=== PATIENT | female | born 1980 | race Caucasian/White ===

== ENCOUNTER 2018-02-14 17:21 | Inpatient (IN) | payer OTHER ==
[~2018-02-14] VITALS: Ht 157.5 cm; Wt 72.1 kg
[2018-02-14] MEDS ORDERED: LR 500 ML IV ONE (17:45)
[2018-02-14] MEDS ORDERED: LR 1,000 ML IV ONE (17:45)
[2018-02-14] MEDS ORDERED: OXYTOCIN/0.9 % SODIUM CHLORIDE 1,000 ML IV SCH (17:45)
[2018-02-14] MEDS ORDERED: LR 1,000 ML IV SCH (17:45)
[2018-02-14] MEDS ORDERED: TERBUTALINE SULFATE 1 MG/ML VIAL SUBCUT ONE (17:45)
[2018-02-14 19:11] LABS: BASOPHILS % (AUTO) 0.1 % (0.0-2.0); EOSINOPHILS % (AUTO) 0.3 % (0.0-4.0); HEMATOCRIT 39.3 % (36-48); HEMOGLOBIN 13.3 g/dL (12.0-16.0); LYMPHOCYTES # (AUTO) 2.4 K/uL (1.0-5.5); LYMPHOCYTES % (AUTO) 22.5 % (20.5-51.5); MEAN CORPUSCULAR HEMOGLOBIN 30 pg (27-31); MEAN CORPUSCULAR HGB CONC 34 % (32-36); MEAN CORPUSCULAR VOLUME 90 fL (79.0-98.0); MONOCYTES # (AUTO) 0.6 K/uL (0.0-1.0); MONOCYTES % (AUTO) 5.9 % (1.7-9.3); NEUTROPHILS # (AUTO) 7.7 K/uL (1.8-7.7); NEUTROPHILS % (AUTO) 71.2 % (40.0-70.0); PLATELET COUNT (AUTO) 239 K/uL (130-430); RED BLOOD CELL COUNT(AUTO) 4.39 MIL/uL (4.2-6.2); RED CELL DISTRIBUTION WIDTH 12.4 % (9.0-15.0); WHITE BLOOD COUNT (AUTO) 10.7 K/uL (4.8-10.8)
[2018-02-14 19:40] VITALS: BP_SYST 126
[2018-02-14] MEDS: NALBUPHINE HCL 10 MG/ML AMP IVP PRN ×2 (20:22→22:24)
[2018-02-14] MEDS ORDERED: OXYTOCIN 10 UNIT/ML VIAL IM ONE (21:45)
[2018-02-15] MEDS: NALBUPHINE HCL 10 MG/ML AMP IVP PRN (00:36)
[2018-02-15] MEDS ORDERED: RHO(D) IMMUNE GLOBULIN/MALTOSE 1500 UNITS/1.3 ML (WINHRO) IM PRN (05:30)
[2018-02-15] MEDS ORDERED: DERMOPLAST SPRAY TP PRN (05:30)
[2018-02-15] MEDS ORDERED: LANOLIN 7 GM OINT. TP PRN (05:30)
[2018-02-15] MEDS ORDERED: METHYLERGONOVINE MALEATE 0.2 MG TABLET PO PRN (05:30)
[2018-02-15] MEDS ORDERED: OXYTOCIN/0.9 % SODIUM CHLORIDE 1,000 ML IV ONE (05:30)
[2018-02-15] MEDS ORDERED: HYDROcodone/ACETAMIN 5-325 MG TAB (NORCO/ VICODIN) PO PRN (05:30)
[2018-02-15] MEDS ORDERED: MEASLES,MUMPS&RUBELLA VACC/PF 12500 UNIT/0.5 ML VIAL SUBQ PRN (05:30)
[2018-02-15] MEDS ORDERED: WITCH HAZEL LEAF 1 MED.PAD MED.PAD TP PRN (05:30)
[2018-02-15] MEDS ORDERED: OXYCODONE/ACETAMINOPHEN 5-325 TABLET PO PRN ×2 (05:30→05:45)
[2018-02-15] MEDS: IBUPROFEN 600 MG TABLET PO SCH ×4 (05:42→23:51)
[2018-02-15] MEDS ORDERED: LIDOCAINE PF 1% 30ML(POUR BTL) INJ ONE (12:06)
[2018-02-15] MEDS: DOCUSATE SODIUM 100 MG CAPSULE PO PRN (12:13)
[2018-02-15] MEDS ORDERED: TEMAZEPAM 15 MG CAPSULE PO PRN (21:00)
[2018-02-16] MEDS: IBUPROFEN 600 MG TABLET PO SCH ×2 (06:01→12:06)
[2018-02-16] MEDS: DOCUSATE SODIUM 100 MG CAPSULE PO PRN ×2 (06:02→12:06)
[2018-02-16 07:02] LABS: HEMATOCRIT 27.4 % (36-48); HEMOGLOBIN 9.4 g/dL (12.0-16.0)
== END 2018-02-16 13:44 | disposition home or self-care (01) | DRG 807 ==
LOC: SPU 17:21 → UNDOADMIN 17:21 → SPU 17:30
PROVIDERS: ADMIT Obstetrics & Gynecology; ATTEND Obstetrics & Gynecology
PROC: 10D07Z6 Extraction of Products of Conception, Vacuum, Via Natural or Artificial Opening (ICD-10-PCS; principal; 2018-02-15)
PROC: 0W8NXZZ Division of Female Perineum, External Approach (ICD-10-PCS; 2018-02-15)
DX: O80 Encounter for full-term uncomplicated delivery (principal); Z37.0 Single live birth; Z3A.39 39 weeks gestation of pregnancy
CPT/HCPCS: 36415; 81002-TC; 85018-TC; 85025; 86592; 86886; 86900; 86901; J2001; J2300; J2590; J7120